=== PATIENT | female | born 1990 | race Hispanic/Latino ===

== ENCOUNTER 2024-06-25 07:42 | Emergency (ER) | payer SELFPAY ==
[2024-06-25 07:45] VITALS: BP 131/85
--- NOTE | 2024-06-25 08:08 | ED.GENMED ---
History of Present Illness
General
Chief Complaint: Cold/Flu/URI Symptoms
Source: patient
Exam Limitations: none
Time Seen by Provider: 06/25/24 08:07
Nursing documentation reviewed up to this point in time: agreed with
History of Present Illness
History of Present Illness:
Patient is a 33-year-old female who presents to the ER for evaluation. Patient has been sick for the past 3 days with fever chills headache cough congestion and vomiting. Patient took Tylenol this morning however did vomit. She reports her fevers
have been as high as 104.
She reports her children have had the flu.
Past History
Past History
ED Past Medical History: Asthma and Other (PNA); Negative Hypercholesterolemia or NIDDM
ED Past Surgical History: None
Social History
Tobacco: Non-smoker
Alcohol: None
Drug: None
Personal:
Living: with family
Employment: Not employed
Family History
Family History: Other
Review of Systems
Review of Systems
Allergies reviewed?: Yes
All Other Systems: ROS reviewed and negative except as documented in HPI and ROS
Constitutional: Reports fever, fatigue and chills
EENT: Reports no symptoms
Respiratory: Reports cough; Denies trouble breathing
Cardiac: Reports no symptoms
ABD/GI: Reports nausea and vomiting; Denies abdominal pain or diarrhea
: Reports no symptoms
Musculoskeletal: Reports other (Myalgia)
Skin: Reports no symptoms
Neurological: Reports headache
Psychiatric: Reports no symptoms
Phy Exam
General Physical Exam
General Presentation: no apparent distress
General age: appears stated age
General Skin: warm and dry
General Habitus: normal
General Mental: alert
General Hydration: appears well hydrated
Cardiovascular Exam
Cardiovascular Exam: regular rate/rhythm, no murmur and normal peripheral pulses
Pulmonary Exam
Pulmonary Exam: lungs clear and no respiratory distress
Neurological Exam
Neurological Exam: alert and oriented x3
Musculoskeletal Exam
Musculoskeletal Exam: full ROM
Skin Exam
Skin Exam: normal color and warm/dry
Psychiatric Exam
Psychiatric Exam: normal mood/affect
Course
Orders/Labs/Results
Orders:
Orders
06/25/24 07:45
EKG [Electrocardiogram (*1)] Urgent
Reason for Study: Chest Pain
EKG- Treatment ONCE
06/25/24 08:15
COVID-19 Antigen Urgent
Source: Nasal Swab
Influenza A+B Rapid Molecular Urgent
DIANE Source: Nasal Swab
Specimen Description:
Ketorolac [Toradol] 15 mg IV NOW STA
Ondansetron Injectable [Zofran] 4 mg IV NOW STA
Test Result ONCE
06/25/24 08:19
Complete Blood Count/With Diff Urgent
06/25/24 08:42
Basic Metabolic Panel Urgent
Abnormal Lab Results
06/25/24 06/25/24
08:19 08:42
Absolute Monos (auto) 0.7 H 10^3/uL
(0.1-0.6)
Monocytes % 12.2 H %
(1.7-9.3)
Sodium 134 L mmol/L
(135-145)
Carbon Dioxide 21 L mmol/L
(22-30)
Creatinine 0.5 L mg/dL
(0.6-1.0)
Glucose 102 H mg/dl
(70-99)
06/25/24 08:19
06/25/24 08:42
Vital Signs
Initial and Last Documented VS:
Initial Vital Signs
Temp Pulse Resp BP Pulse Ox
98.2 F 104 18 131/85 98
06/25/24 07:45 06/25/24 07:45 06/25/24 07:45 06/25/24 07:45 06/25/24 07:45
Last Documented Vital Signs
Temp Pulse Resp BP Pulse Ox
98.2 F 84 16 128/79 98
06/25/24 07:45 06/25/24 09:29 06/25/24 09:29 06/25/24 09:29 06/25/24 09:15
MDM/Problems Addressed
Differential Diagnosis Includes:
Not limited to COVID, influenza, viral syndrome, dehydration
MDM/Problems Addressed:
Patient positive for influenza B patient is nontoxic-appearing hydrated here given Toradol. Normal kidney function. Patient has had symptoms for over 3 days. Will DC with supportive care
*Pulse Oximetry
Patient hypoxic: no
*Critical Care Note
Total Time (30-74mins, 75-104mins- exclusive of procedures): Not Applicable
ED Attending Note
-
Portions of this chart may have been created with voice recognition software.� Occasional wrong word or��sound alike� substitutions may have occurred due to the inherent limitations of voice recognition software.
Discharge Plan
Departure
Patient Disposition: Home (Routine Discharge)
Date of Disposition: 06/25/24
Time of Disposition: 09:30
Patient with high blood pressure during this ER visit?: Yes
Condition: Fair
Covid-19: Not Applicable
Discharge Problem:
Influenza B
Instructions: Fever, Adult (DC), Flu in adults - Discharge instructions, Nausea and vomiting in adults - ED discharge instructions, BLOOD PRESSURE
Prescriptions:
New
ondansetron 4 mg tablet,disintegrating
4 mg PO Q8H PRN (Reason: nausea and vomiting) Qty: 10 0RF
No Action
cetirizine [Allergy Relief (cetirizine)] 10 MG capsule
10 mg PO DAILY
acetaminophen 650 MG suppository
650 mg CO Q4HPRN PRN (Reason: mild pain/OLVERA/temp> 100.4F) 0RF
amoxicillin-pot clavulanate 875-125 mg tablet
1 tab PO Q12H Qty: 13 0RF
Referrals:
Enrique Wolff MD [Family Provider] -
Stand Alone Forms: Return to Work
Activity Restrictions/Additional Instructions:
As discussed be sure to get plenty rest and stay well-hydrated. A prescription for nausea medicine, Zofran was sent to your pharmacy take as directed. You may alternate between ibuprofen and Tylenol for fever chills. Follow-up with your family
doctor as needed in the next several days and return if any worsening of symptoms
Interventions
Interventions:
*Risk Screen - Suicide Last Done: 06/25/24 07:45
*General Assessment Last Done: 06/25/24 07:45
*Neglect/Abuse Screening Last Done: 06/25/24 07:45
*ED- Fall Risk Assessment Last Done: 06/25/24 07:45
*ED COVID-19 Vaccine History Last Done: 06/25/24 07:45
*Nursing Disposition Last Done: 06/25/24 09:46
ED- Pulmonary Assessment Last Done: 06/25/24 08:08
Discharge Date and Time
Discharge Date/Time: 06/25/24 09:55
Print Language: BULGARIAN
[2024-06-25] MEDS: TORADOL 15 MG IV (08:21)
[2024-06-25] MEDS: ZOFRAN 4 MG IV (08:21)
[2024-06-25 08:36] LABS: % Basophils 0.4 % (0-2); % Eosinophils 1.1 % (0-6); % Immature Granulocytes 0.4 % (0-0.5); % Lymphocytes 24.3 % (20.5-51.1); % Monocytes 12.2 % (1.7-9.3); % Neutrophils 61.6 % (42.2-75.2); Absolute Eosinophils 0.1 10^3/uL (0-0.7); Absolute Lymphocytes 1.4 10^3/uL (1.2-3.4); Absolute Monocytes 0.7 10^3/uL (0.1-0.6); Absolute Neutrophils 3.4 10^3/uL (1.4-6.5); Hematocrit 37.8 % (37.0-47.0); Mean Corp Hgb Conc. 34.4 g/dL (33.0-37.0); Mean Corpuscular Hgb 28.8 pg (27.0-31.0); Mean Corpuscular Volume 83.6 fL (81.0-99.0); Mean Platelet Volume 9.4 fL (7.4-10.4); Nucleated Red Blood Cells % 0 %; Platelet Count 178 10^3/uL (130-400); Red Blood Cell Count 4.52 10^6/uL (4.20-5.40); Red Cell Dist. Width 12.2 % (11.5-14.5); White Blood Cell Count 5.6 10^3/uL (4.8-10.8)
[2024-06-25 08:50] LABS: COVID-19 Antigen Negative (Negative)
[2024-06-25 09:06] LABS: Blood Urea Nitrogen 10 mg/dl (7-17); Calcium 8.5 mg/dl (8.4-10.2); Carbon Dioxide 21 mmol/L (22-30); Chloride 106 mmol/L (98-107); Glucose 102 mg/dl (70-99); Sodium 134 mmol/L (135-145); eGFR > 60.00
[2024-06-25 09:29] VITALS: BP 128/79
== END 2024-06-25 09:55 | disposition home or self-care (01) ==
LOC: EMR 07:42
PROVIDERS: Nurse Practitioner; EMERGENCY PHYSICIAN Emergency Medicine
DX: J10.1 Influenza due to other identified influenza virus with other respiratory manifestations (principal); R11.10 Vomiting, unspecified; R51.9 Headache, unspecified; R10.9 Unspecified abdominal pain; Z11.52 Encounter for screening for COVID-19; R03.0 Elevated blood-pressure reading, without diagnosis of hypertension; J45.909 Unspecified asthma, uncomplicated; Z87.01 Personal history of pneumonia (recurrent)
CPT/HCPCS: 99284; 96374; 96375; 80048; 85025; 87502; 87811; 93005

== ENCOUNTER → 2024-08-01 13:05 | Outpatient (REF) | payer OTHER, SELFPAY ==
[2024-08-01 14:44] LABS: Glycohemoglobin (HgbA1c) 5.1 % (4.0-5.6)
[2024-08-01 14:51] LABS: HDL Cholesterol 46 mg/dl; LDL Cholesterol, Calculated 108 mg/dl; Total Cholesterol 170 mg/dl (50-199); Triglyceride 84 mg/dl (10-149); Very Low Density Lipoprotein 16 mg/dl (0-30)
[2024-08-01 15:21] LABS: TSH Reflex To Free T4 1.16 uIU/ml (0.47-4.68)
== END ==
LOC: REG 13:05
PROVIDERS: ATTENDING PHYSICIAN Internal Medicine
DX: F43.9 Reaction to severe stress, unspecified (principal); Z13.1 Encounter for screening for diabetes mellitus
CPT/HCPCS: 36415; 80061; 83036; 84443

== ENCOUNTER → 2024-11-11 09:57 | Outpatient (REF) | payer OTHER, SELFPAY ==
[2024-11-16 06:00] LABS: HPV, High Risk Not Detected; HPV, High Risk Source Cervical
== END ==
LOC: CLINIC 09:57
PROVIDERS: ATTENDING PHYSICIAN Nurse Practitioner Adult Health
DX: Z12.4 Encounter for screening for malignant neoplasm of cervix (principal)
CPT/HCPCS: 36415; 87624

== ENCOUNTER → 2025-02-23 13:23 | Outpatient (REF) | payer OTHER, SELFPAY | LOC: HWRAD 13:23 | PROVIDERS: ATTENDING PHYSICIAN Physician Assistant Medical | DX: R10.20 Pelvic and perineal pain unspecified side (principal) | CPT/HCPCS: 76830; 76856 ==